=== PATIENT | female | born 1975 | race Caucasian/White ===

== ENCOUNTER 2023-09-19 00:25 | Emergency (ER) | payer SELFPAY ==
[~2023-09-19] VITALS: Ht 154.9 cm; Wt 58.5 kg
[2023-09-19] MEDS ORDERED: Ketorolac Tromethamine 60 MG/2 ML VIAL IM ONE (00:35)
[2023-09-19] MEDS ORDERED: Dexamethasone Sodium Phospha 20 MG/5 ML VIAL IM ONE (00:35)
[2023-09-19] MEDS ORDERED: PREDNISONE50 MG PO (02:48)
[2023-09-19] MEDS ORDERED: CYCLOBENZAPRINE5 M3 PO (02:48)
[2023-09-19] MEDS ORDERED: MELOXICAM15 MG PO (02:48)
== END 2023-09-19 02:48 | disposition home or self-care (01) ==
LOC: ED 00:25
DX: M62.830 Muscle spasm of back (principal); Z87.891 Personal history of nicotine dependence